=== PATIENT | female | born 2005 | race Hispanic/Latino ===

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

== ENCOUNTER 2024-10-20 14:48 | Day surgery (SDC) | payer OTHER ==
[2024-10-20 15:08] VITALS: BMI 36.3
[2024-10-20] MEDS ORDERED: hydrALAZINE 20 MG/ML VIAL SLOW IVP PRN (17:15)
== END 2024-10-20 17:50 | disposition home or self-care (01) ==
LOC: CSHLD/OP 14:48
PROVIDERS: ATTEND Family Medicine
DX: O47.1 False labor at or after 37 completed weeks of gestation (principal); Z3A.38 38 weeks gestation of pregnancy; Z79.899 Other long term (current) drug therapy
CPT/HCPCS: 99282

== ENCOUNTER 2024-10-21 04:45 | Inpatient (IN) | payer OTHER ==
[2024-10-21 05:18] VITALS: BMI 36.3
[2024-10-21] MEDS ORDERED: Tranexamic Acid 1,000 MG/10 ML VIAL IVP PRN (05:28)
[2024-10-21] MEDS ORDERED: fentaNYL 50 mcg/mL 1 mL Vial SLOW IVP PRN (05:29)
[2024-10-21] MEDS ORDERED: Methylergonovine 0.2 MG/ML VIAL IM PRN ×2 (05:30→10:54)
[2024-10-21] MEDS ORDERED: Ibuprofen 800 MG TAB PO PRN (05:30)
[2024-10-21] MEDS ORDERED: Lidocaine 1% (PF) 30 ML VIAL SC PRN (05:30)
[2024-10-21] MEDS ORDERED: Oxytocin 30 units/NS 500 ML 500 ML IV SCH ×2 (05:30→10:54)
[2024-10-21] MEDS ORDERED: Diphenoxylate HCl/Atropine Tablet PO PRN (05:30)
[2024-10-21] MEDS ORDERED: Carboprost 250 MCG/ML AMP IM PRN (05:30)
[2024-10-21] MEDS ORDERED: Ondansetron PF 4 MG/2 ML Vial IVP PRN ×2 (05:30→10:54)
[2024-10-21] MEDS ORDERED: Lactated Ringer's 1,000 ML IV SCH (05:30)
[2024-10-21] MEDS ORDERED: Misoprostol 200 MCG TAB RC PRN (05:30)
[2024-10-21] MEDS ORDERED: Promethazine HCl 25 MG/ML VIAL IM PRN ×3 (05:30→10:54)
[2024-10-21] MEDS ORDERED: Acetaminophen 500 MG TAB PO PRN (05:30)
[2024-10-21] MEDS ORDERED: hydrALAZINE 20 MG/ML VIAL SLOW IVP PRN ×2 (05:30→10:54)
[2024-10-21] MEDS: Penicillin G Potassium 5 MILL.UNITS in Sodium Chloride 0.9% 100 ML IVPB SCH (05:32)
[2024-10-21 05:51] LABS: Hematocrit 39.7 % (34.9-44.5); Hemoglobin 13.9 g/dL (12.0-15.5); Mean Corpuscular Hemoglobin 30.7 pg (27.0-33.0); Mean Corpuscular Volume 87.6 fL (81.6-98.3); Platelet Count 185 10x3/uL (150-450); RBC Distribution Width 12.7 % (11.5-14.5); Red Blood Cell (RBC) Count 4.53 10x6/uL (3.90-5.03); White Blood Cell (WBC) Count 11.9 10x3/uL (3.5-10.5)
[2024-10-21 06:05] LABS: HBsAg Index 0.15 S/CO (0-0.99); Hep B Surf Ag - L&D Non-Reactive S/CO (NonReactive)
[2024-10-21 06:07] LABS: Syphilis Antibody Nonreactive (Nonreactive); Syphilis Antibody Index 0.06 S/CO (<1.00 Non-Reactive)
[2024-10-21] MEDS: fentaNYL/Ropivacaine Epidural 100 ML ONE (06:18)
[2024-10-21] MEDS ORDERED: diphenhydrAMINE 50 MG/ML VIAL IVP PRN (06:36)
[2024-10-21] MEDS ORDERED: Lactated Ringer's 500 ML IV PRN (06:36)
[2024-10-21] MEDS ORDERED: ePHEDrine Sulfate 50 MG/10 ML VIAL SLOW IVP PRN (06:36)
[2024-10-21] MEDS ORDERED: Moisturizing Cream (Eucerin) 113 GM JAR TOP PRN (06:36)
[2024-10-21] MEDS ORDERED: Naloxone HCl 0.4 mg/ml Vial IVP PRN ×2 (06:36)
[2024-10-21] MEDS ORDERED: Communication Order-Pharmacy FS SCH (06:45)
[2024-10-21] MEDS ORDERED: fentaNYL 2 mcg/Ropivacaine 0.2% Epidural 100 ML CADD EPIDURAL SCH (06:45)
[2024-10-21] MEDS ORDERED: Bupivacaine/Epinephrine 0.25% 30 ML VIAL ONE (07:00)
[2024-10-21] MEDS: Penicillin G 2.5 MILL.units 2.5 MILL.UNITS in Premix 1 BAG IVPB SCH (09:04)
[2024-10-21] MEDS: Oxytocin 30 units/NS 500 ML 500 ML IVPB SCH (09:48)
[2024-10-21] MEDS: Ondansetron PF 4 MG/2 ML Vial IVP PRN (09:48)
[2024-10-21] MEDS ORDERED: Bisacodyl 10 MG SUPP PR PRN (10:54)
[2024-10-21] MEDS ORDERED: Preparation H Ointment 28 GM TUBE PR PRN (10:54)
[2024-10-21] MEDS ORDERED: Milk Of Magnesia 30 ML UDCUP PO PRN (10:54)
[2024-10-21] MEDS ORDERED: diphenhydrAMINE 25 MG CAP PO PRN (10:54)
[2024-10-21] MEDS ORDERED: Misoprostol 200 MCG TAB VAG PRN (10:54)
[2024-10-21] MEDS ORDERED: Lanolin Ointment 7 GM TUBE TOP PRN (10:54)
[2024-10-21] MEDS ORDERED: Benzocaine-Menthol 82.5 ML CAN TOP PRN (10:54)
[2024-10-21] MEDS: Boostrix 0.5 ML (Tdap) VIAL (>/=7 yrs of age) IM ONE (12:29)
[2024-10-21] MEDS: Penicillin G Potassium 5 MILL.UNITS VIAL ONE (12:29)
[2024-10-21] MEDS: Ibuprofen 800 MG TAB PO SCH (12:50)
[2024-10-21] MEDS: Acetaminophen 325 MG TAB PO PRN (16:35)
[2024-10-21] MEDS: Ferrous Sulfate 325 MG TAB PO SCH (18:36)
[2024-10-21] MEDS: Docusate 100 MG CAP PO SCH (21:03)
[2024-10-22] MEDS: Prenatal Vitamin 1 TAB PO SCH (07:51)
[2024-10-22 08:14] VITALS: BP 99/54; TEMP 98
== END 2024-10-22 13:50 | disposition home or self-care (01) | DRG 807 ==
LOC: CSHLD/OP 04:45 → CSHLD 06:00 → CSHPP 11:00
PROVIDERS: ADMIT Family Medicine; ATTEND Family Medicine
PROC: 10E0XZZ Delivery of Products of Conception, External Approach (ICD-10-PCS; principal; 2024-10-21)
PROC: 0HQ9XZZ Repair Perineum Skin, External Approach (ICD-10-PCS; 2024-10-21)
DX: O99.824 Streptococcus B carrier state complicating childbirth (principal); Z37.0 Single live birth; Z3A.38 38 weeks gestation of pregnancy; O70.0 First degree perineal laceration during delivery
CPT/HCPCS: 51702; 85027; 86780; 86850; 86900; 86901; 87340; 99285; J2405; J2540; J2590